=== PATIENT | male | born 1960 | race American Indian/Alaskan Native ===

== ENCOUNTER 2018-11-23 08:58 | Day surgery (SDC) | payer OTHER ==
[~2018-11-23 08:58] MED LIST: WATER FOR IRRIG STERILE IR ONE; WATER FOR IRRIG STERILE ONE
[2018-11-23] MEDS ORDERED: NACL 0.9% 1000 ML 1,000 ML IV SCH (10:00)
[2018-11-23] MEDS ORDERED: DIPRIVAN 10 MG/ML IV ONE ×2 (10:23)
--- NOTE | 2018-11-23 10:41 | Anesthesia Consultation ---
Anesthesia Consult and Med Hx Date of service: 11/23/18 - Airway Anesthetic Teeth Evaluation: Good ROM Head & Neck: Adequate Mental/Hyoid Distance: Adequate Mallampati Class: Class I Intubation Access Assessment: Probably Good - Pulmonary Exam CTA: Yes - Cardiac Exam Cardiac Exam: RRR - Pre-Operative Health Status ASA Pre-Surgery Classification: ASA2 - Pulmonary Hx Smoking: No Hx Asthma: No - Cardiovascular System Hx Hypertension: Yes Hx Coronary Artery Disease: Yes Hx Heart Murmur: No - Central Nervous System Hx Neuromuscular Disorder: No Hx Psychiatric Problems: Yes (Anxiety; took clonazepam this morning ) - Gastrointestinal Hx Gastroesophageal Reflux Disease: No - Endocrine Hx Renal Disease: No Hx Liver Disease: No - Hematic Hx Sickle Cell Disease: No - Other Systems Hx Alcohol Use: No - Additional Comments Anesthesia Medical History Comments: No GAC, No FHAC
[2018-11-23] MEDS ORDERED: VERSED ONE (11:09)
--- NOTE | 2018-11-23 12:03 | Operative Report ---
Operative Report Operative Report: Date of procedure: 10/23/2018 Procedure: Colonoscopy with Hot Biopsy Polypectomy. Attending physician: Kole Pacheco MD Metal Bonder: Kole Pacheco MD Indication: Patient is a 58-year-old male who presents for screening colonoscopy. A colonoscopy serves to evaluate patient so that treatment may be directed based on the findings. Consent: Informed consent was obtained after advising the patient and family regarding nature of this procedure, its indications, potential benefits as well as possible complications including but not limited to bleeding perforation and adverse reaction to medication, infection as well as other cardiopulmonary complications. An informed written and verbal consent was then obtained after due opportunity was provided for questions and answers. Monitoring: Patient was monitored continuously with pulse oximetry and electrocardiographic recordings as well as blood pressure recordings. Vital signs remained stable throughout this procedure with no untoward events. Preoperative assessment: Patient was assessed immediately prior to this procedure for capacity to tolerate monitored anesthesia care and moderate sedation as well as general anesthesia. Patient's ASA classification is 2, Mallampati class is 2, Hyomental distance is 3. Instrument: [employer] video colonoscope Medications: Propofol given intravenously in divided doses. For details please refer to anesthesia records. Description of procedure: Patient was placed in the left lateral decubitus position after achieving sedation, a digital rectal examination was performed following which the colonoscope was introduced into the anal verge and advanced to the cecum which was identified by the cecal valve, the appendiceal orifice, as well as by the cecal strap and direct transillumination. The colonoscope was subsequently withdrawn with careful inspection of all mucosal surfaces. Patient tolerated this procedure well and was subsequently taken to the recovery room. The following findings were noted. Findings: The preparation was fair. Patient has some scattered liquid stool that was fairly easily irrigated. There were diverticula seen in the sigmoid and descending colon. There were 2 diminutive flat polyps in the sigmoid colon which were removed by hot biopsy polypectomy. The rest of the colon was normal. On the retroflexed view at the anal verge, patient had internal hemorrhoids. Impression: Diminutive sigmoid colon polyps status post hot biopsy polypectomy. Mild Diverticular disease of the colon. Internal hemorrhoids. Plan: Follow pathology report. High-fiber diet. Repeat colonoscopy in 5 years if polyps are adenomatous.
--- NOTE | 2018-11-23 12:03 | Discharge Summary ---
Short Stay Discharge Plan Activity: advance as tolerated Weight Bearing Status: Weight Bear as Tolerated Diet: regular Follow up with: RADHA MARTINO MD [Primary Care Provider] - 7 Days
[2018-11-23 12:23] VITALS: BP 1130/85
--- NOTE | 2018-11-23 16:34 | History and Physical Report ---
History of Present Illness Date of examination: 11/23/18 Date of admission: 11/23/2018 Chief complaint: Colorectal cancer screening. History of present illness: Patient is a 58-year-old male referred for colorectal cancer screening. Denies any additional complaints. Past History Past Medical History: other (Depression) Social history: denies: smoking, alcohol abuse Family history: no significant family history Medications and Allergies Allergies Allergy/AdvReac Type Severity Reaction Status Date / Time No Known Allergies Allergy Verified 11/23/18 09:26 Home Medications Medication Instructions Recorded Confirmed Last Taken Type FLUoxetine HCL [Fluoxetine HCl] 1 tab PO DAILY 11/23/18 11/23/18 11/22/18 History Zolpidem [Ambien] 1 tab PO HS PRN 11/23/18 11/23/18 11/22/18 History clonazePAM [Clonazepam] 1 tab PO BID PRN 11/23/18 11/23/18 11/23/18 History Active Meds: Active Medications Sodium Chloride (Nacl 0.9% 1000 Ml) 1,000 mls @ 50 mls/hr IV DIRECT [id number] Last Admin: 11/23/18 09:45 Dose: 50 mls/hr Documented by: Review of Systems All systems: negative Exam - Constitutional Vitals: Temp Pulse Resp BP Pulse Ox 97.8 F 64 14 1130/85 94 11/23/18 11:56 11/23/18 12:22 11/23/18 12:22 11/23/18 12:22 11/23/18 12:22 General appearance: Present: no acute distress, well-nourished - EENT Eyes: Present: PERRL ENT: hearing intact, clear oral mucosa - Neck Neck: Present: supple, normal ROM - Respiratory Respiratory effort: normal Respiratory: bilateral: CTA - Cardiovascular Heart Sounds: Present: S1 & S2. Absent: rub, click - Extremities Extremities: pulses symmetrical, No edema Peripheral Pulses: within normal limits - Abdominal General gastrointestinal: Present: soft, non-tender, non-distended, normal bowel sounds Male genitourinary: Present: normal - Integumentary Integumentary: Present: clear, warm, dry - Musculoskeletal Musculoskeletal: gait normal, strength equal bilaterally - Psychiatric Psychiatric: appropriate mood/affect, intact judgment & insight - Neurologic Neurologic: CNII-XII intact, moves all extremities Assessment and Plan Colorectal cancer screening. Plan: Full colonoscopy
== END 2018-11-23 08:59 | disposition home or self-care (01) ==
LOC: GIO 08:58
PROVIDERS: ATTEND Internal Medicine Gastroenterology
DX: Z12.11 Encounter for screening for malignant neoplasm of colon (principal); K63.5 Polyp of colon; K57.30 Diverticulosis of large intestine without perforation or abscess without bleeding; K64.8 Other hemorrhoids; F32.9 Major depressive disorder, single episode, unspecified; F41.9 Anxiety disorder, unspecified; I25.10 Atherosclerotic heart disease of native coronary artery without angina pectoris; E78.00 Pure hypercholesterolemia, unspecified; I10 Essential (primary) hypertension; Z79.899 Other long term (current) drug therapy; Z87.891 Personal history of nicotine dependence
CPT/HCPCS: 45384; 88305; J2250; J2704; J7030